=== PATIENT | female | born 1975 | race African-American/Black ===

== ENCOUNTER 2023-01-09 21:38 | Emergency (ER) | payer OTHER, SELFPAY ==
--- NOTE | ~2023-01-09 | XR_ITS ---
EXAMINATION: XR chest 2V DATE: 01/09/2023 22:30 INDICATION: Chest pain. TECHNIQUE: Frontal and lateral views of the chest were obtained. COMPARISON: None. FINDINGS: There is mild atelectasis in the lower lung zones. No pleural effusion or pneumothorax. The heart size is normal. IMPRESSION: 1. Mild atelectasis in the lower lung zones. Reviewed, dictated and finalized at location A.
[2023-01-09 21:43] VITALS: BP 126/76; PULSE 114; RESP 14; TEMP 36.7; O2SAT 98
--- NOTE | 2023-01-09 21:43 | ECG_ITS ---
Measurements Intervals [place] Rate: 107 P: 42 NC: 171 QRS: 42 QRSD: 82 T: 26 QT: 314 QTc: 419 Interpretive Statements SINUS TACHYCARDIA RSR' IN V1 OR V2, PROBABLY NORMAL VARIANT MINIMAL Q WAVES- HIGH LATERAL LEADS NONSPECIFIC T-WAVE ABNORMALITY- ANTEROLAT/INF LEADS BASELINE ARTIFACT- I, III, AVL ABNORMAL ECG NO PREVIOUS ECG AVAILABLE FOR COMPARISON Electronically Signed On 01-09-2023 22:06:21 CDT by Myron Bourgeois D.O.
[2023-01-09 22:00] LABS: Basophils Absolute Auto 0.1 K/mm3 (0.0-0.1); Basophils Percent Auto 0.7 % (0.2-1.2); Eosinophils Absolute Auto 0.1 K/mm3 (0-0.3); Eosinophils Percent Auto 0.8 % (0-4.4); Hematocrit 39.4 % (37.0-47.0); Immature Granulocyte Absolute 0.05 K/mm3 (0.00-0.031); Immature Granulocyte Percent A 0.5 % (0-0.5); Lymphocytes Percent Auto 20.3 % (18.3-44.2); Mean Corpuscular Volume 84.9 fl (80-100); Monocytes Absolute Auto 0.5 K/mm3 (0.1-0.6); Monocytes Percent Auto 5.1 % (2.6-8.5); Neutrophils Absolute Auto 7.1 K/mm3 (1.3-6.7); Neutrophils Percent Auto 72.6 % (45.5-73.1); Platelet Count Result 291 k/mm3 (150-375); Red Blood Count 4.64 M/mm3 (4.2-5.4); Red Cell Distribution Width 12.7 % (11.5-14.5); White Blood Count 9.8 K/mm3 (4.5-10.0)
[2023-01-09 22:10] LABS: Alanine Aminotransferase 26 U/L (6-35); Albumin Level 4.7 g/dL (3.5-5.1); Alkaline Phosphatase 72 U/L (38-126); Anion Gap 8 mmol/L (8-16); Aspartate Amino Transferase 28 U/L (14-36); Bilirubin,Total 0.4 mg/dL (0.2-1.3); Blood Urea Nitrogen 14 mg/dL (7-17); Calcium 9.2 mg/dL (8.4-10.2); Carbon Dioxide 28 mmol/L (22-30); Chloride 104 mmol/L (98-107); Estimated CRCL calculation 77 ml/min; Estimated Glomerular Filt Rate > 60; Glucose 137 mg/dL (65-110); Lipase 46 U/L (23-300); Potassium 3.6 mmol/L (3.4-5.0); Sodium 140 mmol/L (137-145)
[2023-01-09 22:15] LABS: Partial Thromboplastin Time 26.8 SECONDS (22.3-36.8)
[2023-01-09 22:22] LABS: Troponin I < 0.012 ng/mL (0.000-0.034)
[2023-01-09 23:14] VITALS: BP 126/80; PULSE 101; RESP 24
[2023-01-09 23:15] VITALS: O2SAT 98
[2023-01-09 23:16] VITALS: BP 108/73; PULSE 98; RESP 18
[2023-01-09 23:31] VITALS: BP 111/85; PULSE 101; RESP 22
[2023-01-10 00:02] VITALS: BP 123/99; PULSE 107; RESP 21
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
[2023-01-10 02:20] LABS: Troponin I < 0.012 ng/mL (0.000-0.034)
== END 2023-01-10 02:41 | disposition home or self-care (01) ==
PROVIDERS: Emergency Provider Emergency Medicine; PCP Internal Medicine
DX: R07.89 Other chest pain (principal); R00.0 Tachycardia, unspecified; R94.31 Abnormal electrocardiogram [ECG] [EKG]
CPT/HCPCS: 36415; 71046; 80053; 83690; 84484; 85025; 85610; 85730; 93005; 99284